=== PATIENT | male | born 1970 | race Caucasian/White ===

== ENCOUNTER 2016-09-25 02:11 | Emergency (ER) | payer MEDICARE, OTHER | END 2016-09-25 04:23 | disposition home or self-care (01) | LOC: ER 02:11 | DX: J44.1 Chronic obstructive pulmonary disease with (acute) exacerbation (principal); R09.02 Hypoxemia; R06.89 Other abnormalities of breathing; F31.9 Bipolar disorder, unspecified; R11.0 Nausea; F17.210 Nicotine dependence, cigarettes, uncomplicated | CPT/HCPCS: 36415; 87502; 96374; 96375 ==

== ENCOUNTER 2016-10-29 20:07 | Inpatient (IN) | payer MEDICARE, OTHER ==
[~2016-10-29] VITALS: Ht 177.8 cm; Wt 109.5 kg
--- NOTE | 2016-10-30 14:10 | NUR ---
1215-PATIENT WANTS TO EAT. PATIENT GIVEN TRAY AND ENCOURAGED TO TAKE IT SLOW AND TAKE BREAKS. I ASKED HIM TO TAKE SMALL BITES AND PUT HIS VENTIMASK ON AFTER EACH BITE. PATIENT REFUSES TO LEAVE MASK ON. O2 SAT DECREASED TO LOW 59%. LIPS BLUE. FACIAL COLOR CHANGES WELL. I THEN ASKED PATIENT TO PLEASE PUT VENTI MASK ON. THE PATIENT HAS A CLEAR UNDERSTANDING WHAT MAY HAPPEN IF HIS OXYGEN SATURATION DECREASES TOO MUCH. PATIENT HAS ALSO BEEN EDUCATED BY ME, RT AND DR DIEZ HOW THE ONLY WAY TO GET CO2 LEVELS TO DECREASE IS TO WEAR THE BIPAP. PATIENT STATES HE CAN NOT TOLERATE IT FOR MORE THAN A LITTLE AT A TIME.
--- NOTE | 2016-10-30 15:11 | NUR ---
1500- patient up on side of bed trying to pee. Oxygen saturation decreased to 67%. Patient asked to leave oxygen on. Dr. Samuels informed of O2 saturation. REquests that lancaster cath be inserted. Went to patient's bedside and explained to the patient how the lancaster cath would take some of the stress off of the lungs because of not having to get up to void. Patient refuses. Dr Samuels informed.
--- NOTE | 2016-10-30 18:20 | NUR ---
1400- encouraged patient to switch from venti mask to bipap due to co2 on earlier abg. patient refuses. patient states he would rather than wear that mask.
--- NOTE | 2016-10-30 18:21 | NUR ---
1600- patient continues to refuse bipap. Dr Samuels, respiratory therapy and both nurses, myself and Lena Gutierrez have encouraged patient to wear bipap. Patient is aware of risks of not wearing bipap. Patient continues to refuse to wear bipap.
--- NOTE | 2016-11-01 09:15 | NUR ---
GAVE REPORT TO KALLIE EDMONDS RN AND ALL QUESTIONS WERE ANSWERED. PATIENT AND HIS DAUGHTER WAS INFORMED THAT HE WOULD BE TRANSFERRED TO ROOM 306. ALL OF THE PATIENT'S BELONGINGS WERE PACKED UP AND PREPARED TO BE MOVED TO ROOM 306.
--- NOTE | 2016-11-01 09:30 | NUR ---
PATIENT EXITED ICU VIA W/C ACCOMPANIED BY A NURSE, A STEEL UNLOADER, AND HIS DAUGHTER IN NO ACUTE DISTRESS TO GO TO ROOM 306. REPORT WAS ALREADY GIVEN TO KALLIE EDMONDS RN AND SHE IS EXPECTING HIM. PATIENT IS VERY APPRECIATIVE OF THE CARE GIVEN TO HIM IN THE ICU.
--- NOTE | 2016-11-01 11:05 | NUR ---
09- RECEIVED REPORT ON PATIENT FROM Vera BRADY RN IN ICU. 929- PATIENT ARRIVED TO FLOOR PER WC TO ROOM 306. NO COMPLAINTS, NO S/S OF DISTRESS. HIGH FLOW O2 ON AT 8 L PER NC. AGREE WITH PREVIOUS HEAD TO TOE ASSESSMENT.
== END 2016-11-03 14:35 | disposition home or self-care (01) | DRG 189 ==
LOC: ER 20:07 → ICU 22:40 → MED 11-01 09:42
PROVIDERS: ADMIT Internal Medicine
PROC: 3E0234Z Introduction of Serum, Toxoid and Vaccine into Muscle, Percutaneous Approach (ICD-10-PCS; principal; 2016-11-03)
DX: J96.21 Acute and chronic respiratory failure with hypoxia (principal); J44.0 Chronic obstructive pulmonary disease with (acute) lower respiratory infection; J44.1 Chronic obstructive pulmonary disease with (acute) exacerbation; J96.22 Acute and chronic respiratory failure with hypercapnia; J20.9 Acute bronchitis, unspecified; E88.01 Alpha-1-antitrypsin deficiency; F41.9 Anxiety disorder, unspecified; I25.10 Atherosclerotic heart disease of native coronary artery without angina pectoris; F17.210 Nicotine dependence, cigarettes, uncomplicated; Z91.19 Patient's noncompliance with other medical treatment and regimen; R59.1 Generalized enlarged lymph nodes; R91.1 Solitary pulmonary nodule; I25.2 Old myocardial infarction; Z99.81 Dependence on supplemental oxygen; F31.9 Bipolar disorder, unspecified; Z79.899 Other long term (current) drug therapy; Z23 Encounter for immunization
CPT/HCPCS: 36415; 80307; 94640; G0009; G0480; J0360; J1650; J2060; Q9967

== ENCOUNTER 2016-10-29 20:07 | Emergency (ER) | payer MEDICARE, OTHER | END 2016-10-29 22:39 | disposition critical access hospital (66) | LOC: ER 20:07 | DX: J96.02 Acute respiratory failure with hypercapnia (principal); J44.1 Chronic obstructive pulmonary disease with (acute) exacerbation; I10 Essential (primary) hypertension; F31.9 Bipolar disorder, unspecified; F17.210 Nicotine dependence, cigarettes, uncomplicated; Z79.899 Other long term (current) drug therapy | CPT/HCPCS: 36415; 96361; 96374; 96375; J0360; J2060; Q9967 ==